=== PATIENT | female | born 1950 | race Two or more races ===

== ENCOUNTER 2021-07-06 23:31 | Emergency (ER) | payer OTHER, BC ==
[~2021-07-06] VITALS: Ht 167.6 cm; Wt 68.0 kg
[2021-07-06] MEDS ORDERED: UCERIS9 MG (23:50)
[2021-07-07] MEDS ORDERED: PYRIDIUM DS200 MG PO (02:13)
[2021-07-07] MEDS ORDERED: CIPRO500 MG PO (02:13)
[2021-07-07] MEDS ORDERED: KETO10TA2 PO (02:17)
== END 2021-07-07 02:22 ==
LOC: ER 23:31
DX: N39.0 Urinary tract infection, site not specified (principal)